=== PATIENT | female | born 1945 | race Caucasian/White ===

== ENCOUNTER → 2020-12-07 | Outpatient (CLI) | payer MEDICARE, OTHER ==
[~2020-12-07] MED LIST: ESTR1TAB3 PO; LEVO25TA55 PO; OLME1TAB23 PO
[2020-12-07 13:19] LABS: C REACTIVE PROTEIN 0.9 mg/L (0-3.3); CALCIUM 9.3 mg/dL (8.5-10.1); CREATININE 0.8 mg/dL (0.6-1.0); GFR 70.3; POTASSIUM 3.9 mmol/L (3.5-5.1); TOTAL BILIRUBIN 0.4 mg/dL (0.2-1.0); TOTAL PROTEIN 8.1 g/dL (6.4-8.2)
[2020-12-07 13:30] LABS: BASO % 1 % (0-3); EOS # 0.1 x10^3/uL (0.0-0.7); EOS % 2 % (0-3); HEMATOCRIT 42.4 % (36.0-47.0); HEMOGLOBIN 14.5 g/dL (12.0-15.5); LYMPH # 1.3 x10^3/uL (1.0-4.8); LYMPH % 21 % (24-48); MEAN CORPUSCULAR HEMOGLOBIN 33 pg (25-35); MEAN CORPUSCULAR HGB CONC 34 g/dL (31-37); MEAN CORPUSCULAR VOLUME 97 fL (79-100); MONO # 0.4 x10^3/uL (0.0-1.1); MONO % 6 % (0-9); NEUT # 4.4 x10^3uL (1.8-7.7); NEUT % 70 % (31-73); PLATELET COUNT 226 x10^3/uL (140-400); RED BLOOD COUNT 4.35 x10^6/uL (3.50-5.40); WHITE BLOOD COUNT 6.3 x10^3/uL (4.0-11.0)
[2020-12-07 14:39] LABS: BACTERIA,URINE 0 /HPF (0-FEW); BILIRUBIN,URINE NEG (NEG); CLARITY,URINE CLEAR; COLOR,URINE YELLOW; GLUCOSE,URINE NEG (NEG); NITRITE,URINE NEG (NEG); RBC,URINE OCC /HPF (0-2); SQUAMOUS EPITHELIAL CELL,UR MANY /LPF; UROBILINOGEN,URINE 0.2 mg/dL (0.2 mg/dL); WBC,URINE OCC /HPF (0-4)
[2020-12-07 14:52] LABS: SEDIMENTATION RATE 13 (0-25)
[2020-12-07 16:23] LABS: FREE T4 0.91 ng/dL (0.76-1.46); THYROID STIM HORMONE (TSH) 0.389 uIU/mL (0.358-3.740)
[2020-12-08 00:09] LABS: ESTRADIOL LEVEL <5.0 pg/mL (.); TESTOSTERONE TOTAL <3 ng/dL (3-67)
== END ==
LOC: LAB 11:08
PROVIDERS: ATTEND Family Medicine
DX: E03.9 Hypothyroidism, unspecified (principal); E55.9 Vitamin D deficiency, unspecified; R53.81 Other malaise; Z98.890 Other specified postprocedural states
CPT/HCPCS: 36415; 80053; 80061; 81001; 82306; 82670; 84403; 84439; 84443; 85025; 85651; 86140

== ENCOUNTER → 2021-03-09 | Outpatient (CLI) | payer MEDICARE, OTHER ==
--- NOTE | 2021-03-10 00:47 | RAD ---
Two-view chest dated 03/10/2021 12:43 AM Comparison: None CLINICAL INDICATION: Follow-up Covid pneumonia FINDINGS: PA and lateral views obtained. Heart and mediastinal contours are within normal limits. There are anabell e prominent patchy and linear markings at the perihilar regions. No consolidation or pleural effusion . No pneumothorax.. IMPRESSION: 1. Mild perihilar opacities, atelectasis versus early pneumonia. Electronically signed by: Israel Kirby MD (03/10/2021 12:44 AM) [id number]
== END ==
LOC: RAD 16:10
PROVIDERS: ATTEND Family Medicine
DX: R91.8 Other nonspecific abnormal finding of lung field (principal); J18.9 Pneumonia, unspecified organism
CPT/HCPCS: 71046

== ENCOUNTER → 2021-03-21 | Outpatient (CLI) | payer MEDICARE, OTHER ==
--- NOTE | 2021-03-21 16:03 | RAD ---
EXAM: XR CHEST 2V 03/21/2021 3:30 PM CLINICAL INDICATION: Covid in January, shortness of breath COMPARISON: Chest radiograph 03/09/2021 TECHNIQUE: PA and lateral views of the chest FINDINGS: The heart and mediastinum are normal. Lungs are well-expanded. No consolidation, pleural e ffusion, or pneumothorax. 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 IMPRESSION: No acute cardiopulmonary abnormality. Electronically signed by: Francoise García MD (03/21/2021 4:01 PM) [id number]
[2021-03-21 16:32] LABS: BASO % 0 % (0-3); EOS # 1.4 x10^3/uL (0.0-0.7); EOS % 14 % (0-3); HEMATOCRIT 38.3 % (36.0-47.0); LYMPH # 2.2 x10^3/uL (1.0-4.8); LYMPH % 22 % (24-48); MEAN CORPUSCULAR HEMOGLOBIN 32 pg (25-35); MEAN CORPUSCULAR HGB CONC 34 g/dL (31-37); MEAN CORPUSCULAR VOLUME 95 fL (79-100); MONO # 0.8 x10^3/uL (0.0-1.1); MONO % 8 % (0-9); NEUT # 5.7 x10^3uL (1.8-7.7); NEUT % 56 % (31-73); PLATELET COUNT 280 x10^3/uL (140-400); RED BLOOD COUNT 4.05 x10^6/uL (3.50-5.40); RED CELL DISTRIBUTION WIDTH 15.5 % (11.5-14.5); WHITE BLOOD COUNT 10.1 x10^3/uL (4.0-11.0)
[2021-03-21 16:45] LABS: ALBUMIN 3.6 g/dL (3.4-5.0); ALBUMIN/GLOBULIN RATIO 0.8 (1.0-1.7); C REACTIVE PROTEIN 27.4 mg/L (0-3.3); CALCIUM 9.1 mg/dL (8.5-10.1); CREATININE 0.9 mg/dL (0.6-1.0); GFR 61.4; POTASSIUM 3.8 mmol/L (3.5-5.1); TOTAL BILIRUBIN 0.4 mg/dL (0.2-1.0); TOTAL PROTEIN 7.9 g/dL (6.4-8.2)
== END ==
LOC: RAD 15:23
PROVIDERS: ATTEND Family Medicine
DX: R06.02 Shortness of breath (principal); R05.9 Cough, unspecified; J12.82 Pneumonia due to coronavirus disease 2019; M47.814 Spondylosis without myelopathy or radiculopathy, thoracic region
CPT/HCPCS: 36415; 71046; 80053; 85025; 86140